=== PATIENT | female | born 1990 | race Two or more races ===

== ENCOUNTER 2021-12-14 18:16 | Outpatient (CLI) | payer OTHER ==
[2021-12-14] MEDS ORDERED: PRENATAL + DHA1 EAC1 PO (18:24)
== END 2021-12-14 22:21 | disposition home or self-care (01) ==
LOC: OBS/DEL 18:16
PROVIDERS: ATTEND Obstetrics & Gynecology
DX: O26.893 Other specified pregnancy related conditions, third trimester (principal); Z3A.29 29 weeks gestation of pregnancy; R10.2 Pelvic and perineal pain

== ENCOUNTER 2022-01-25 14:08 | Inpatient (IN) | payer OTHER ==
[~2022-01-25] VITALS: Ht 162.6 cm; Wt 2.7 kg
[~2022-01-25 14:08] MED LIST: PRENATAL + DHA1 EAC1 PO
[2022-01-27] MEDS ORDERED: TAMS0.4C PO (06:36)
[2022-01-27] MEDS ORDERED: PAIN RELIEVER500 M2 PO (06:36)
== END 2022-01-27 13:31 | disposition home or self-care (01) | DRG 807 ==
LOC: LDR 14:08 → OB/GYN 20:52
PROVIDERS: ADMIT Obstetrics & Gynecology; ATTEND Obstetrics & Gynecology
PROC: 4A1HXCZ Monitoring of Products of Conception, Cardiac Rate, External Approach (ICD-10-PCS; 2022-01-25)
PROC: 10E0XZZ Delivery of Products of Conception, External Approach (ICD-10-PCS; principal; 2022-01-26)
DX: O60.14X0 Preterm labor third trimester with preterm delivery third trimester, not applicable or unspecified (principal); Z37.0 Single live birth; Z3A.35 35 weeks gestation of pregnancy; Z20.822 Contact with and (suspected) exposure to COVID-19

== ENCOUNTER 2022-11-30 09:36 | Emergency (ER) | payer OTHER ==
[~2022-11-30] VITALS: Ht 162.6 cm; Wt 46.7 kg
[~2022-11-30 09:36] MED LIST changes: +PAIN RELIEVER500 M2 PO; +TAMS0.4C PO
[2022-11-30 11:38] LABS: HEMATOCRIT 40.3 % (36.0-45.00); HEMOGLOBIN 13.8 g/dL (12.0-15.00); MEAN CORPUSCULAR HEMOGLOBIN 29.4 pg (27.00-32.0); MEAN CORPUSCULAR HGB CONC 34.1 g/dl (32.0-36.0); PLATELET COUNT 248 K/uL (150-450); RED BLOOD COUNT 4.69 M/uL (4.00-6.00); RED CELL DISTRIBUTION WIDTH 13.6 % (11.5-14.5)
[2022-11-30 12:21] LABS: CALCIUM 8.6 mg/dL (8.5-10.1); CREATININE SERUM 0.62 mg/dL (0.55-1.02); GFR 113.02; POTASSIUM 3.43 mEq/L (3.5-5.1)
[2022-11-30] MEDS ORDERED: PEPCID AC20 MG PO (12:41)
[2022-11-30] MEDS ORDERED: ZOFRAN8 MG PO (12:41)
== END 2022-11-30 15:04 | disposition home or self-care (01) ==
LOC: ER 09:36
PROVIDERS: General Practice
DX: K52.89 Other specified noninfective gastroenteritis and colitis (principal); R10.9 Unspecified abdominal pain; Z20.822 Contact with and (suspected) exposure to COVID-19; Z88.6 Allergy status to analgesic agent; Z91.012 Allergy to eggs